=== PATIENT | female | born 1980 | race Caucasian/White ===

== ENCOUNTER → 2017-01-14 | Outpatient (REF) | LOC: ZLAB.WCH 15:59 | DX: Z01.89 Encounter for other specified special examinations (principal) ==

== ENCOUNTER → 2019-09-14 | Outpatient (REF) | LOC: COL.CARD 10:24 | DX: R00.2 Palpitations (principal) ==

== ENCOUNTER → 2020-02-09 | Outpatient (CLI) | payer BC | LOC: COL.RAD 11:24 | DX: M50.31 Other cervical disc degeneration, high cervical region (principal) | CPT/HCPCS: Q9967 ==

== ENCOUNTER → 2020-03-27 | Outpatient (CLI) | payer BC | LOC: COL.CARD 09:40 | DX: R55 Syncope and collapse (principal); M54.2 Cervicalgia ==

== ENCOUNTER 2020-05-24 06:06 | Outpatient (CLI) | payer BC ==
[~2020-05-24] VITALS: Ht 170.2 cm; Wt 61.9 kg
[2020-05-24] MEDS ORDERED: MULTIPLE VITAMI1 TA5 PO (08:32)
[2020-05-24 10:30] VITALS: BP 121/82; PULSE 84; TEMP 98.6
[2020-05-24 10:45] VITALS: BP 115/80; PULSE 81; TEMP 98.6
[2020-05-24 11:00] VITALS: BP 110/72; PULSE 74; TEMP 98.6
[2020-05-24 11:09] VITALS: BP 118/79; PULSE 81; TEMP 98.6
[2020-05-24 11:12] VITALS: BP 120/78; PULSE 78; TEMP 98.6
--- NOTE | 2020-05-24 11:12 | NUR ---
INT discontinued intact. Discharge instructions given. Transferred to private car by eliane
== END 2020-05-24 11:15 | disposition home or self-care (01) ==
LOC: COL.CAR 06:06
DX: R55 Syncope and collapse (principal); I47.1 Supraventricular tachycardia